=== PATIENT | male | born 2000 | race African-American/Black ===

== ENCOUNTER 2019-07-28 15:34 | Emergency (ER) | payer OTHER ==
[~2019-07-28] VITALS: Ht 188 cm; Wt 79.0 kg
[2019-07-28 15:42] VITALS: BP 182/63
[2019-07-28] MEDS ORDERED: BACITRACIN ZINC OINT UDPKT TOP ONE (16:00)
[2019-07-28] MEDS ORDERED: LIDOCAINE HCL/PF 1% 10 MG/ML 5ML VIAL IJ ONE (16:00)
[2019-07-28] MEDS ORDERED: IBUPROFEN 600MG TABLET PO ONE (16:00)
[2019-07-28] MEDS ORDERED: AMOXICILLIN/POTASSIUM CLAVULANATE 875/125MG TAB PO ONE (16:45)
== END 2019-07-28 16:58 | disposition home or self-care (01) ==
LOC: ER 15:34
DX: S01.452A Open bite of left cheek and temporomandibular area, initial encounter (principal); J45.909 Unspecified asthma, uncomplicated; W54.0XXA Bitten by dog, initial encounter; Y93.89 Activity, other specified; Y92.89 Other specified places as the place of occurrence of the external cause; Y99.8 Other external cause status
CPT/HCPCS: 12013; 99284; J3490

== ENCOUNTER 2019-07-30 16:57 | Emergency (ER) | payer OTHER ==
[~2019-07-30] VITALS: Ht 185.4 cm; Wt 78.0 kg
[2019-07-30 17:02] VITALS: BP 139/73
== END 2019-07-30 17:33 | disposition home or self-care (01) ==
LOC: ER 16:57
DX: S01.81XD Laceration without foreign body of other part of head, subsequent encounter (principal); X58.XXXD Exposure to other specified factors, subsequent encounter; J45.909 Unspecified asthma, uncomplicated
CPT/HCPCS: 99283